=== PATIENT | male | born 1950 | race Caucasian/White ===

== ENCOUNTER 2017-07-18 06:48 | Day surgery (SDC) | payer OTHER, MEDICARE ==
[2017-07-18] MEDS ORDERED: LIDOCAINE HCL 1% MPF SOL ONE (07:18)
[2017-07-18] MEDS ORDERED: PROPOFOL 500 MG/50 ML EMU IV ONE (07:18)
[2017-07-18 08:35] VITALS: TEMP 97.8
[2017-07-18 08:48] VITALS: RESP 20
[2017-07-18 08:56] VITALS: BP 164/80; PULSE 71; O2SAT 95
== END 2017-07-18 09:02 | disposition home or self-care (01) | DRG 395 ==
LOC: SURG 06:48
PROVIDERS: ATTEND Internal Medicine Gastroenterology
DX: D13.2 Benign neoplasm of duodenum (principal); K31.7 Polyp of stomach and duodenum
CPT/HCPCS: 99001; J2001; J2704

== ENCOUNTER 2017-08-09 09:43 | Day surgery (SDC) | payer OTHER ==
[2017-08-09] MEDS ORDERED: PROPOFOL 500 MG/50 ML EMU IV ONE (10:25)
[2017-08-09 12:31] VITALS: RESP 18
[2017-08-09 12:42] VITALS: BP 136/85; PULSE 68; TEMP 96.7; O2SAT 98
== END 2017-08-09 13:00 | disposition home or self-care (01) | DRG 951 ==
LOC: SURG 09:43
PROVIDERS: ATTEND Surgery
DX: Z12.11 Encounter for screening for malignant neoplasm of colon (principal); D12.3 Benign neoplasm of transverse colon; Z86.010 Personal history of colon polyps
CPT/HCPCS: 93005; 99001; J2704